=== PATIENT | female | born 1945 | race Caucasian/White ===

== ENCOUNTER 2017-11-25 22:31 | Emergency (ER) | payer MEDICARE ==
[2017-11-25 22:42] VITALS: BP 177/83
--- NOTE | 2017-11-25 23:02 | RADIOLOGY REPORT (SQ) ---
EXAM DESCRIPTION: XR SHOULDER 2 OR MORE VIEWS COMPLETED DATE/TME: 11/25/2017 00:00 CLINICAL HISTORY: 72 years, Female, injury COMPARISON: None. NUMBER OF VIEWS: TECHNIQUE: LIMITATIONS: None. FINDINGS: There is a mildly displaced fracture of the left humerus neck. No humerus head dislocation. IMPRESSION: Proximal left humerus fracture. 2010 [email or web address] [facility] [employer]- All Rights Reserved
[2017-11-25] MEDS ORDERED: HYDROCODONE/ACETAMINOPHEN 5-325 MG TABLET PO ONE (23:16)
[2017-11-25] MEDS ORDERED: HYDROCODONE/ACETAMINOPHEN 5-325 MG (6 TAB/ER DISP) PO PRN (23:16)
--- NOTE | 2017-11-25 23:22 | ER Document Report ---
ED General - General Chief Complaint: Shoulder Injury Stated Complaint: SHOULDER INJURY Time Seen by Provider: 11/25/17 23:00 Notes: Patient is a pleasant 72-year-old female who tripped over the tongue of a trailer. She landed onto her left shoulder. She felt immediate pain left shoulder. She denies any weakness or numbness in the left arm or hand. She denies any other injuries or pain. She has no other complaints at this time. She says that she is unable to lift her left shoulder because of the pain. TRAVEL OUTSIDE OF THE [place] IN LAST 30 DAYS: No - Related Data Allergies/Adverse Reactions: codeine Allergy (Verified 11/25/17 22:38) Sulfa (Sulfonamide Antibiotics) Allergy (Verified 11/25/17 22:38) Past Medical History - Social History Smoking Status: Never Smoker Frequency of alcohol use: None Drug Abuse: None Family History: Reviewed & Not Pertinent Review of Systems - Review of Systems Notes: My Normal Review Basic REVIEW OF SYSTEMS: CONSTITUTIONAL : Denies fever, chills, or sweats. Denies recent illness. MUSCULOSKELETAL: Left shoulder pain SKIN: Denies rash or skin lesions. NEUROLOGICAL: Denies sensory or motor loss. ALL OTHER SYSTEMS REVIEWED AND NEGATIVE. Physical Exam - Vital signs Vitals: Temp Pulse Resp BP Pulse Ox 98.4 F 81 18 177/83 H 99 11/25/17 22:41 11/25/17 22:41 11/25/17 22:41 11/25/17 22:41 11/25/17 22:41 - Notes Notes: General Appearance: Well nourished, alert, cooperative, no acute distress, no obvious discomfort. Neck: Supple, no neck tenderness, No thyromegaly Extremities: strength 5/5 in all extremities, good pulses in all extremities, patient has obvious pain with palpation of left shoulder. No pain to elbow wrist or hand the left arm. No pain into right upper extremity. Patient has good hub associate strength left hand. He has good opposition of thumb with all fingers. She is able to abduct and adduct fingers without difficulty. She is able to flex and extend wrist without difficulty. Good distal sensation all parts of the hand and fingers. Skin: warm, dry, appropriate color, no rash Neuro: speech clear, oriented x 3, normal affect, responds appropriately to questions. Course - Re-evaluation Re-evalutation: 11/25/17 23:27 Patient has a femoral neck fracture. Will place her in a sling. She does have orthopedist back home. She is visiting from out of town. She says she will call her orthopedist Monday morning for close follow-up appointment. She has no signs of any neuro deficits in her hand. She has great distal sensation and full function of her hands and wrists. I informed her the importance of wearing the sling at all times. I informed her that she must follow-up closely with orthopedic doctor this week and that she must follow-up medially with the ER orthopedist if she starts having numbness or weakness into the hand or wrist. Patient agrees with plan will be discharged home. Dictation of this chart was performed using voice recognition software; therefore, there may be some unintended grammatical errors. - Vital Signs Vital signs: Temp Pulse Resp BP Pulse Ox 98.4 F 81 18 177/83 H 99 11/25/17 22:41 11/25/17 22:41 11/25/17 22:41 11/25/17 22:41 11/25/17 22:41 Discharge - Discharge Clinical Impression: Fracture of neck of humerus Qualifiers: Encounter type: initial encounter Fracture type: closed Laterality: left Qualified Code(s): S42.212A - Unspecified displaced fracture of surgical neck of left humerus, initial encounter for closed fracture Condition: Good Disposition: HOME, SELF-CARE Instructions: Oral Narcotic Medication ([facility]) Additional Instructions: Please wear the sling at all times. Please call your orthopedist doctor on Monday to follow up this week for close follow up and continued management of your fracture. Please return to the ER immediately if you have weakness or numbness into your hand. Please be aware that the [place] does have Tylenol in it so make sure if you are also taking plain Tylenol for pain that you do not take accumatively more than 4,000mg of Tylenol a day. Prescriptions: Hydrocodone/Acetaminophen [[place] 5-325 mg Tablet] 1 tab PO Q4 PRN #16 tablet PRN Reason: For Breakthrough Pain
== END 2017-11-25 23:40 | disposition home or self-care (01) ==
LOC: ER 22:31
DX: S42.212A Unspecified displaced fracture of surgical neck of left humerus, initial encounter for closed fracture (principal); M25.512 Pain in left shoulder; W01.0XXA Fall on same level from slipping, tripping and stumbling without subsequent striking against object, initial encounter; Z88.5 Allergy status to narcotic agent; Z88.2 Allergy status to sulfonamides
CPT/HCPCS: 99283; 73030; A9270 ×2